=== PATIENT | male | born 1935 | race Caucasian/White ===

== ENCOUNTER 2016-09-27 08:30 | Outpatient (CLI) | payer MEDICARE, BC ==
[~2016-09-27] VITALS: Ht 177.8 cm; Wt 79.0 kg
[~2016-09-27 08:30] MED LIST: ALENDRONATE SOD70 MG PO; ASPIRIN E.C. 8181 MG PO; B/P MED; CALCIUM + D 5001 TAB PO; CALCIUM + D 6001 TAB PO; CALCIUM 500 + D1 TA2 PO; CALTRATE-600 W600 MG PO; CARDI-OMEGA1000 MG PO; DHA PO; DOXYCYCLINE 10100 MG PO; FISH OIL1 IU PO; FLOMAX 0.40.4 MG/CAP PO; FOSAMAX 70MG TA70 MG PO; GLUCOSAMINE & C1 TA1 PO; GLUCOSAMINE PO; HCTZ 25MG TAB25 MG PO; LOPRESSOR 225 MG/TAB PO; MULTIPLE VITAMI1 CAP PO; MULTIPLE VITAMI1 TAB PO; MVI; OMEGA 31000 MG PO; PLAVIX 75MG TAB75 MG PO; PRAVACHOL10 MG PO; PREDNISONE 2.52.5 MG PO; PREDNISONE 5MG5 MG PO; PREDNISONE10 MG PO; PREVACID 30MG30 M1 PO; PREVACID 30MG30 MG PO; PREVACID30 M1 PO; SPIRIVA INH IH; SYMBICORT1 AE1 IH; ULTRAM50 MG PO; VITAMIN D; VITAMIN D1000 IU PO; ZESTRIL 5MG5 MG PO; ZOCOR 40MG40 MG PO; [UNRECOGNIZED DRUG - OTHER] PO; [UNRECOGNIZED DRUG - OTHER] PO
[2016-09-27 09:21] VITALS: BP 134/72; PULSE 83; TEMP 97.3
== END 2016-09-27 12:20 | disposition home or self-care (01) ==
LOC: EUO 08:30 → COL.RAD 08:45 → EUO 12:20
DX: H81.10 Benign paroxysmal vertigo, unspecified ear (principal); E78.5 Hyperlipidemia, unspecified; I34.0 Nonrheumatic mitral (valve) insufficiency; Z87.891 Personal history of nicotine dependence; Z98.890 Other specified postprocedural states

== ENCOUNTER 2017-03-14 11:14 | Emergency (ER) | payer MEDICARE, BC ==
[~2017-03-14] VITALS: Ht 177.8 cm; Wt 83.6 kg
[2017-03-14 11:24] VITALS: TEMP 97.9
[2017-03-14 11:55] LABS: BASO # 0.1 (0.0-0.2); BASO % 0.4 % (0.0-2.0); EOS # 0.1 (0.0-0.7); EOS % 0.7 % (0-4.0); GRAN # 10.6 (1.4-6.5); HEMATOCRIT 40.7 % (42.0-52.0); LYMPH % 15.1 % (20.0-51.0); MEAN CELL VOLUME 90 fl (80.0-100.0); MEAN CORPUSCULAR HEMOGLOBIN 31 pg (27.0-31.0); MEAN CORPUSCULAR HGB CONC 34 g/dl (33.0-37.0); MEAN PLATELET VOLUME 9.4 fl (7.4-10.4); MONO # 0.8 (0.1-0.6); MONO % 5.6 % (1.7-9.3); PLATELET COUNT 221 K/mm3 (130-400); RED BLOOD COUNT 4.53 M/mm3 (4.20-5.60); REDCELL DISTRIBUTION WIDTH-CV 12.6 % (11.5-14.5); WHITE BLOOD COUNT 13.6 K/mm3 (4.8-10.8)
[2017-03-14 12:04] LABS: ADJUSTED CALCIUM 9.1 mg/dL (8.4-10.2); ALANINE AMINOTRANSFERASE 22 U/L (21-72); ALBUMIN 3.8 gm/dL (3.5-5.0); ALKALINE PHOSPHATASE 71 U/L (50-136); ANION GAP 9 mmol/L (7-16); BLOOD UREA NITROGEN 18 mg/dL (9-20); CALCIUM 8.9 mg/dL (8.4-10.2); CARBON DIOXIDE 23 mmol/L (22-30); CHLORIDE 108 mmol/L (98-107); CREATININE, serum 0.94 mg/dL (0.66-1.25); GLUCOSE 89 mg/dL (74-106); LIPASE 86 U/L (23-300); POTASSIUM 4.1 mmol/L (3.4-5.0); SODIUM 140 mmol/L (137-145); TOTAL PROTEIN 6.6 gm/dL (6.4-8.2)
[2017-03-14 12:16] LABS: B-TYPE NATRIURETIC PEPTIDE 374 pg/mL (0-450)
[2017-03-14 12:23] LABS: TROPONIN-I < 0.012 ng/mL (0.000-0.034)
[2017-03-14 13:48] LABS: PROTHROMBIN TIME 11.4 SECONDS (9.7-12.8)
[2017-03-14 14:22] VITALS: BP 133/81; PULSE 81
== END 2017-03-14 14:22 | disposition home or self-care (01) ==
LOC: COL.ER 11:14
PROVIDERS: Emergency Medicine
DX: R53.81 Other malaise (principal); R06.00 Dyspnea, unspecified; R07.9 Chest pain, unspecified; R53.83 Other fatigue; I25.10 Atherosclerotic heart disease of native coronary artery without angina pectoris; I10 Essential (primary) hypertension; E78.5 Hyperlipidemia, unspecified; Z95.5 Presence of coronary angioplasty implant and graft; Z79.02 Long term (current) use of antithrombotics/antiplatelets

== ENCOUNTER → 2018-07-31 | Outpatient (CLI) | payer MEDICARE, BC | LOC: COL.RAD 10:45 | DX: I74.3 Embolism and thrombosis of arteries of the lower extremities (principal); I71.4 Abdominal aortic aneurysm, without rupture; I87.1 Compression of vein; Z95.820 Peripheral vascular angioplasty status with implants and grafts | CPT/HCPCS: Q9967 ==

== ENCOUNTER → 2018-08-14 | Outpatient (CLI) | payer MEDICARE, BC | LOC: COL.RAD 09:47 | DX: I87.1 Compression of vein (principal); I71.4 Abdominal aortic aneurysm, without rupture; R19.00 Intra-abdominal and pelvic swelling, mass and lump, unspecified site; Z95.820 Peripheral vascular angioplasty status with implants and grafts | CPT/HCPCS: Q9967 ==

== ENCOUNTER → 2018-10-06 | Outpatient (CLI) | payer MEDICARE, BC | LOC: COL.RAD 10:29 | DX: R07.1 Chest pain on breathing (principal) ==

== ENCOUNTER → 2020-09-20 | Outpatient (CLI) | payer MEDICARE, BC ==
[2020-09-20 12:45] LABS: C-REACTIVE PROTEIN < 0.5 mg/dL (0.0-0.9)
[2020-09-20 12:53] LABS: TROPONIN-I < 0.012 ng/mL (0.000-0.035)
== END ==
LOC: ZCOL.LAB 12:34
PROVIDERS: Nurse Practitioner
DX: Z01.89 Encounter for other specified special examinations (principal)

== ENCOUNTER → 2020-09-21 | Outpatient (CLI) | payer MEDICARE, BC | LOC: COL.RAD 09-20 14:00 | DX: G31.9 Degenerative disease of nervous system, unspecified (principal); I67.82 Cerebral ischemia; R06.02 Shortness of breath; R51.9 Headache, unspecified ==

== ENCOUNTER → 2020-11-01 | Outpatient (CLI) | payer MEDICARE, BC | LOC: COL.RAD 11:45 | DX: R51.9 Headache, unspecified (principal); Z95.5 Presence of coronary angioplasty implant and graft | CPT/HCPCS: A9585 ==

== ENCOUNTER → 2020-12-14 | Outpatient (CLI) | payer MEDICARE, BC | LOC: COL.RAD 12:29 | DX: M65.88 Other synovitis and tenosynovitis, other site (principal) ==

== ENCOUNTER → 2021-02-01 | Outpatient (CLI) | payer MEDICARE, BC | LOC: ZLAB.ENT 16:26 | DX: H60.02 Abscess of left external ear (principal) ==

== ENCOUNTER → 2021-10-05 | Outpatient (CLI) | payer MEDICARE, BC ==
[~2021-10-05] MED LIST changes: +MOTRIN 600600 MG/TAB PO; +NORCO 325 MG-51 TAB PO
[2021-10-05 14:06] LABS: ALANINE AMINOTRANSFERASE 13 U/L (0-55); ALKALINE PHOSPHATASE 64 U/L (40-150); ANION GAP 9 mmol/L (7-16); AST,SGOT 22 U/L (5-34); BILIRUBIN,TOTAL 1.7 mg/dL (0.2-1.2); BLOOD UREA NITROGEN 14 mg/dL (8-26); C-REACTIVE PROTEIN 0.12 mg/dL (0.00-0.50); CALCIUM 8.8 mg/dL (8.4-10.2); CARBON DIOXIDE 24 mmol/L (23-31); CHLORIDE 108 mmol/L (98-107); GLUCOSE 117 mg/dL (70-99); POTASSIUM 3.9 mmol/L (3.5-4.5); SODIUM 141 mmol/L (136-145); TOTAL PROTEIN 6.4 gm/dL (6.2-8.1); TROPONIN-I < 0.010 ng/mL (0.00-0.033)
== END ==
LOC: ZCOL.LAB 13:41
PROVIDERS: Internal Medicine Interventional Cardiology
DX: I25.10 Atherosclerotic heart disease of native coronary artery without angina pectoris (principal); R42 Dizziness and giddiness

== ENCOUNTER → 2022-05-11 | Outpatient (CLI) | payer MEDICARE, BC | LOC: COL.RAD 10:39 | DX: M51.36 Other intervertebral disc degeneration, lumbar region (principal); M51.37 Other intervertebral disc degeneration, lumbosacral region; M24.852 Other specific joint derangements of left hip, not elsewhere classified ==

== ENCOUNTER 2023-07-29 11:45 | Emergency (ER) | payer MEDICARE, BC ==
[~2023-07-29] VITALS: Ht 180.3 cm; Wt 74.5 kg
[2023-07-29 11:54] VITALS: TEMP 97.6
[2023-07-29] MEDS ORDERED: LR 1,000 ML IV ONE (12:45)
[2023-07-29 13:09] LABS: BASO % 0.2 % (0.0-2.0); EOS # 0.1 K/mm3 (0.0-0.7); EOS % 1.3 % (0.0-4.0); GRAN # 5.6 K/mm3 (1.4-6.5); GRAN % 64.1 % (42.2-75.2); HEMATOCRIT 39.1 % (42.0-52.0); HEMOGLOBIN 13.6 g/dl (13.5-18.0); LYMPH # 2.2 K/mm3 (1.2-3.4); LYMPH % 25.3 % (20.0-51.0); MEAN CELL VOLUME 88 fl (80.0-100.0); MEAN CORPUSCULAR HEMOGLOBIN 31 pg (27-31); MEAN CORPUSCULAR HGB CONC 35 g/dl (33.0-37.0); MEAN PLATELET VOLUME 9.3 fl (7.4-10.4); MONO # 0.8 K/mm3 (0.1-0.6); MONO % 8.8 % (1.7-9.3); PLATELET COUNT 170 K/mm3 (130-400); RED BLOOD COUNT 4.46 M/mm3 (4.20-5.60); REDCELL DISTRIBUTION WIDTH-CV 12.4 % (11.5-14.5)
[2023-07-29 13:45] LABS: ALANINE AMINOTRANSFERASE 16 U/L (0-55); ALBUMIN 3.6 gm/dL (3.4-4.8); ALKALINE PHOSPHATASE 66 U/L (40-150); ANION GAP 9 mmol/L (7-16); AST,SGOT 21 U/L (5-34); BLOOD UREA NITROGEN 20 mg/dL (8-26); CALCIUM 9.3 mg/dL (8.4-10.2); CARBON DIOXIDE 25 mmol/L (23-31); CHLORIDE 110 mmol/L (98-107); CREATININE, serum 1.19 mg/dL (0.72-1.25); GLUCOSE 98 mg/dL (70-99); PHOSPHOROUS 3.4 mg/dL (2.3-4.7); POTASSIUM 3.9 mmol/L (3.5-4.5); SODIUM 144 mmol/L (136-145); TOTAL PROTEIN 6.1 gm/dL (6.2-8.1)
[2023-07-29 13:51] LABS: TROPONIN-I < 0.010 ng/mL (0.00-0.033)
[2023-07-29 15:01] VITALS: BP 164/79; PULSE 71
== END 2023-07-29 15:15 | disposition home or self-care (01) ==
LOC: COL.ER 11:45
PROVIDERS: Emergency Medicine
DX: R42 Dizziness and giddiness (principal)
CPT/HCPCS: J7120

== ENCOUNTER 2024-02-15 14:46 | Inpatient (IN) | payer MEDICARE, BC ==
[~2024-02-15] VITALS: Ht 180.3 cm; Wt 70.6 kg
[2024-02-15 15:14] LABS: BASO % 0.1 % (0.0-2.0); GRAN # 12.9 K/mm3 (1.4-6.5); GRAN % 87.2 % (42.2-75.2); HEMOGLOBIN 12.3 g/dl (13.5-18.0); LYMPH # 1.1 K/mm3 (1.2-3.4); LYMPH % 7.7 % (20.0-51.0); MEAN CELL VOLUME 88 fl (80.0-100.0); MEAN CORPUSCULAR HEMOGLOBIN 30 pg (27-31); MEAN CORPUSCULAR HGB CONC 34 g/dl (33.0-37.0); MEAN PLATELET VOLUME 9.8 fl (7.4-10.4); MONO # 0.7 K/mm3 (0.1-0.6); MONO % 4.7 % (1.7-9.3); PLATELET COUNT 178 K/mm3 (130-400); RED BLOOD COUNT 4.11 M/mm3 (4.20-5.60); REDCELL DISTRIBUTION WIDTH-CV 12.5 % (11.5-14.5)
[2024-02-15 15:15] LABS: HEMATOCRIT 36.1 % (42.0-52.0)
[2024-02-15 15:20] LABS: INR 1.1 (0.8-3.0); PROTHROMBIN TIME 12.5 SECONDS (9.7-12.8)
[2024-02-15 15:23] LABS: PARTIAL THROMBOPLASTIN TIME 28.2 SECONDS (26.0-37.0)
[2024-02-15 15:32] LABS: ALANINE AMINOTRANSFERASE 12 U/L (0-55); ALKALINE PHOSPHATASE 68 U/L (40-150); ANION GAP 16 mmol/L (7-16); AST,SGOT 23 U/L (5-34); BILIRUBIN,TOTAL 1.7 mg/dL (0.2-1.2); BLOOD UREA NITROGEN 47 mg/dL (8-26); C-REACTIVE PROTEIN 3.72 mg/dL (0.00-0.50); CALCIUM 9.3 mg/dL (8.4-10.2); CHLORIDE 109 mEq/L (98-107); CREATININE, serum 3.65 mg/dL (0.72-1.25); GLUCOSE 187 mg/dL (70-99); LIPASE 8 U/L (8-78); MAGNESIUM 1.9 mg/dL (1.6-2.6); POTASSIUM 4.4 mEq/L (3.5-4.5); SODIUM 142 mEq/L (136-145); TOTAL PROTEIN 6.9 g/dl (6.2-8.1)
[2024-02-15 15:37] LABS: TROPONIN-I 0.011 ng/mL (0.00-0.033)
[2024-02-15 15:41] LABS: ALCOHOL(ethanol),MEDICAL < 10 mg/dL (0-10)
[2024-02-15 16:30] LABS: COLLECTION METHOD CLEAN CATCH
[2024-02-15 16:52] LABS: TRICYCLIC ANTIDEPRESS URINE NEGATIVE (NEGATIVE); URINE APPEARANCE TURBID (CLEAR/HAZY); URINE BLOOD TRACE (NEGATIVE); URINE COLOR RED (YELLOW); URINE GLUCOSE NEGATIVE (NEGATIVE); URINE KETONE TRACE (NEGATIVE); URINE NITRATE POSITIVE (NEGATIVE); URINE PROTEIN(semi-quant) TRACE (NEGATIVE); URINE UROBILINOGEN 0.2 E.U/dL (0.2-1.0)
[2024-02-15 17:12] LABS: SQUAMOUS EPITHELIAL 0-2 /hpf (0-10); URINE RBC >50 /hpf (0-2)
[2024-02-15] MEDS ORDERED: NS 1,000 ML IV ONE (18:45)
[2024-02-15] MEDS ORDERED: Morphine 4 MG/ML VIAL IV ONE (18:45)
[2024-02-15] MEDS ORDERED: cefTRIAXone 1 G in Water For Injection,Sterile 10 ML IV ONE (18:45)
[2024-02-15] MEDS ORDERED: NS 1,000 ML IV SCH (19:30)
[2024-02-15] MEDS ORDERED: Acetaminophen 325 MG TAB PO PRN (19:30)
[2024-02-15] MEDS ORDERED: DAZIDOX10 MG PO (19:35)
[2024-02-15] MEDS ORDERED: NORVASC2.5 MG PO (19:35)
[2024-02-15] MEDS ORDERED: NAMENDA 10MG TA10 MG PO (19:35)
[2024-02-15] MEDS ORDERED: EFFEXOR 75M75 MG/TAB PO (19:35)
[2024-02-15] MEDS ORDERED: CRESTOR 10MG10 MG PO (19:35)
[2024-02-15] MEDS ORDERED: PRINIVIL20 MG PO (19:35)
[2024-02-15] MEDS ORDERED: ARICEPT10 MG PO (19:35)
[2024-02-15] MEDS ORDERED: SEROQUEL 2525 MG/TAB PO (19:36)
[2024-02-15 19:42] VITALS: BP 144/103; PULSE 115
[2024-02-15] MEDS ORDERED: ASPIRIN 81M81 MG/TA2 PO (20:04)
[2024-02-15 20:59] VITALS: BP_SYST 122
[2024-02-15] MEDS ORDERED: Atorvastatin 20 MG TAB PO SCH (21:00)
[2024-02-15] MEDS ORDERED: Memantine 10 MG TAB PO SCH (21:00)
[2024-02-15] MEDS ORDERED: Rosuvastatin 10 MG **** subs to Atorvastatin 20 MG PO SCH (21:00)
[2024-02-15] MEDS ORDERED: Donepezil 5 MG TAB PO SCH (21:00)
[2024-02-15] MEDS ORDERED: Metoprolol Tartrate 25 MG TAB PO SCH (21:00)
[2024-02-15] MEDS ORDERED: QUEtiapine 25 MG TAB PO SCH (21:00)
[2024-02-15 21:03] VITALS: BP 122/71; PULSE 119; TEMP 98.3
[2024-02-15 21:21] VITALS: BP_SYST 122; PULSE 103
--- NOTE | 2024-02-15 21:30 | NUR ---
Report received from ER at approximately 2039. Arrived to medical unit at approximately 2049. Patient is alert and oriented to self. Has increased confusion from baseline according to nephew Jacob who came up with patient. Asked if he could stay a while, and this nurse told him due to confusion he could stay however long he would like, even stay the night if he wanted to. Patient reports pain to BLE, chronic. Given PRN Acetaminophen per orders. Peripheral INT to left forearm. Started IV fluids per orders. Denies having SOB and dyspnea. LS CTA. HRR. On telemetry per orders. BSAx4. No edema. Reports tenderness to right flank area. Reports bloody urine, unable to observe at this time. Patient given scheduled medications. Unable to do med rec, as patient is not aware of medications. Nephew is not sure, and stated that Allegraklaus puts his medications in packages to help patient. OLY Corey completed med rec with family in ER. High fall risk precautions initiated. Voices no questions, needs, or concerns at this time. In bed with call light within reach. Bed alarm on.
[2024-02-15 23:13] VITALS: BP 125/67; PULSE 91; TEMP 98.1
[2024-02-16] VITALS (15 sets, daily range): BP systolic 118–158; BP diastolic 60–78; PULSE 72–99; TEMP 97–98.5
--- NOTE | 2024-02-16 03:10 | NUR ---
Troponin called to OLY Corey.
--- NOTE | 2024-02-16 06:11 | NUR ---
Patient has voiced no further complaints of pain or discomfort this shift. Continues on IV fluids per orders. Patient has had hematuria this shift. Voices no questions, needs, or concerns at this time. In bed with call light within reach. High fall risk precautions in place. Bed alarm on.
--- NOTE | 2024-02-16 06:22 | NUR ---
Consult called to Dr. Diamond at this time.
[2024-02-16] MEDS ORDERED: Pantoprazole 40 MG in NS 10 ML IV SCH (07:00)
[2024-02-16 07:07] LABS: BASO % 0.2 % (0.0-2.0); EOS # 0.1 K/mm3 (0.0-0.7); EOS % 0.7 % (0.0-4.0); GRAN # 6.4 K/mm3 (1.4-6.5); LYMPH # 1.6 K/mm3 (1.2-3.4); LYMPH % 18.3 % (20.0-51.0); MEAN CELL VOLUME 89 fl (80.0-100.0); MEAN CORPUSCULAR HGB CONC 34 g/dl (33.0-37.0); MEAN PLATELET VOLUME 10.6 fl (7.4-10.4); MONO # 0.5 K/mm3 (0.1-0.6); MONO % 6.3 % (1.7-9.3); PLATELET COUNT 137 K/mm3 (130-400); RED BLOOD COUNT 3.19 M/mm3 (4.20-5.60); REDCELL DISTRIBUTION WIDTH-CV 12.5 % (11.5-14.5)
[2024-02-16 07:11] LABS: HEMATOCRIT 28.3 % (42.0-52.0); HEMOGLOBIN 9.7 g/dl (13.5-18.0); MEAN CORPUSCULAR HEMOGLOBIN 30 pg (27-31)
[2024-02-16 07:27] LABS: CALCIUM 8.4 mg/dL (8.4-10.2); CREATININE, serum 3.43 mg/dL (0.72-1.25)
--- NOTE | 2024-02-16 08:30 | NUR ---
PATIENT RESTING IN BED UPON ENTERING ROOM. MORNING MEDICATIONS ADMINISTERED PER eMAR. PATIENT IS ORIENTED X1-2. AT BEDSIDE, UPDATED AND PATIENT ON PLAN OF CARE. IVF INFUSING. PATIENT DENIES ANY PAIN OR NEEDS THIS MORNING. CALL LIGHT PLACED WITHIN REACH, BED ALARM IN PLACE. REMAINS NPO FOR DOCTOR TO SEE. WILL CONTINUE TO MONITOR.
--- NOTE | 2024-02-16 11:50 | NUR ---
SW met with patient, his (Kalie [phone]) she was present and permitted to remain and assist with intake. Patient was resting, and patient's primary supported SW will intake info. Patient's confirmed that his PCP is Dr. Christensen and pharmacy of choice is [facility]. She informed SW that patient lives home alone, she resides two houses down from her spouse. Patient's reports that his health has been declining, and that he has dementia. 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 Kalie (patients ) shared that she has been considering having a family member come in periodically to support patient, as she believes patient will be unwilling to have home health care in his home. Patient currently uses a walker and cane, not additional DMEs at this time reported. Patient is not full independent with ADLs per , as he needs some assistance. Kalie (patients ) reports that they do have DPOA on file with estate administrator and PCP. Discharge plan: TBD
[2024-02-16 12:13] LABS: BASO % 0.3 % (0.0-2.0); EOS % 0.4 % (0.0-4.0); GRAN # 7.6 K/mm3 (1.4-6.5); HEMOGLOBIN 10.1 g/dl (13.5-18.0); LYMPH # 1.1 K/mm3 (1.2-3.4); LYMPH % 11.5 % (20.0-51.0); MEAN CELL VOLUME 90 fl (80.0-100.0); MEAN CORPUSCULAR HEMOGLOBIN 30 pg (27-31); MEAN CORPUSCULAR HGB CONC 34 g/dl (33.0-37.0); MEAN PLATELET VOLUME 9.8 fl (7.4-10.4); MONO # 0.6 K/mm3 (0.1-0.6); MONO % 6.2 % (1.7-9.3); PLATELET COUNT 135 K/mm3 (130-400); RED BLOOD COUNT 3.35 M/mm3 (4.20-5.60); REDCELL DISTRIBUTION WIDTH-CV 12.5 % (11.5-14.5)
[2024-02-16] MEDS ORDERED: NS 10 ML IV ONE ×2 (15:40→16:17)
[2024-02-16] MEDS ORDERED: fentaNYL 50 MCG/ML 2 ML VIAL ONE (15:40)
[2024-02-16] MEDS ORDERED: Etomidate 20 MG/10 ML VIAL IV ONE (15:40)
[2024-02-16] MEDS ORDERED: Ondansetron 4 MG/2 ML VIAL ONE (15:40)
[2024-02-16] MEDS ORDERED: dexAMETHasone 10 MG/ML VIAL ONE (15:40)
[2024-02-16] MEDS ORDERED: HYDROmorphone 1 MG/1 ML SYRINGE [PACU/SDC ONLY] IV PRN (15:45)
[2024-02-16] MEDS ORDERED: Ondansetron 4 MG/2 ML VIAL IV PRN (15:45)
[2024-02-16] MEDS ORDERED: fentaNYL 50 MCG/ML 1 ML SYRINGE/VIAL [PACU/SDC ONLY] IV PRN ×2 (15:45)
[2024-02-16] MEDS ORDERED: hydrALAZINE 20 MG/ML 1 ML VIAL IV PRN (15:45)
[2024-02-16] MEDS ORDERED: LR 1,000 ML IV SCH (15:45)
[2024-02-16] MEDS ORDERED: Iohexol 300 - 10 ML VIAL URETER-B ONE (16:18)
[2024-02-16] MEDS ORDERED: Lidocaine 2% (20 MG/ML) 20 ML UROJET UR ONE (16:18)
[2024-02-16] MEDS ORDERED: Hyoscyamine 0.125 MG Sublingual TAB SL PRN (17:15)
--- NOTE | 2024-02-16 17:20 | NUR ---
PATIENT RETURNED TO UNIT AT THIS TIME. PATIENT DID SPIT LEVSIN PILL OUT ACROSS THE ROOM. HOOKED UP TO POST OP VITALS. RESUMED IVF. PATIENT COMPLAINING OF OLIVA WHILE HE WAS AWAKE, BUT QUICKLY FELL ASLEEP. OLIVA IS DRAINING RED URINE. FAMILY BACK AT BEDSIDE. BED ALARM IN PLACE, CALL LIGHT WITHIN REACH. HOOKED BACK UP TO TELEMETRY. WILL CONTINUE TO MONITOR.
[2024-02-16] MEDS ORDERED: cefTRIAXone 1 G in Water For Injection,Sterile 10 ML IV SCH (18:00)
--- NOTE | 2024-02-16 18:26 | NUR ---
PATIENT IS BECOMING INCREASINGLY AGGITATED HE WAKES FROM SEDATION. REFUSES TO WEAR THE PULSE OXIMETER AND TRYING TO GET OUT OF BED. FAMILY AT BEDSIDE TRYING TO CALM HIM DOWN. ZOEY SAMS NOTIFIED AND INSTRUCTED TO GIVE 2100 SEROQUEL EARLY.
[2024-02-16] MEDS ORDERED: LORazepam 2 MG/ML 1 ML VIAL IV ONE ×2 (18:45→19:15)
--- NOTE | 2024-02-16 19:20 | NUR ---
During bedside report patient is pulling on tran and very combative. Nurse Lilliam and CHAR Kemp at bedside. RICHAR Corey also at bedside with verbal order for ativan 0.25mg IV now and apply mitts. Order placed for ativan-given by thisnurse. CHAR Kemp remains at bedside and has calmed patient. Patient is suppose to be on post op vitals and have TELE on. All removed due to agitation. RICHAR Corey aware. All external stimulation has been reduced. Family remains at bedside. Will monitor.
--- NOTE | 2024-02-16 20:00 | NUR ---
Lab here to draw scheduled CBC. Patient is finally calm/resting with eyes closed. Spoke with RICHAR Corey and aracelis to hold off on scheduled CBC for now. Patient continues to rest comfortable with family at bedside. Ramon cath with dark red output. Small amount of blood around insertion site due to previous pulling on line. NS@75ml/hr to left forearm IV infusing without difficulty. Post op vitals held. TELE is currently off. Instructed PCT to hold off on cares for now due to patient being previously combative and receiving a doses of ativan. Will monitor.
--- NOTE | 2024-02-16 20:45 | NUR ---
Post op vitals on hold-patient has been very combative and uncooperative-Leora BUS DRIVER SUPERVISOR aware and is okay to hold off on cares for now. Family remains at bedside.
--- NOTE | 2024-02-16 20:49 | NUR ---
Family to desk and is going home for this shift. Worried patient is going to try to get out of bed when they do leave. Instructed bed alarm is on lightest setting-does have orders for mittens if needed-at this time not placed due to fear of making more agitated. Will place if patient becomes more alert. Currently is resting eyes closed post ativan x2. Will monitor
--- NOTE | 2024-02-16 21:08 | NUR ---
Patient continues to be restless waking up agitated. Family remains at bedside. Has refused to take HS meds. Did take HS seroquel but thinks staff is trying to poison him. Currently unable to get VS. Ramon cath with bloody output noted. Left forearm IV with NS@75ml/hr infusing without difficulty. Family instructed to notify staff when leaving so we can decrease bed alarm sensitivity. Verbalizes understanding. Call light in reach. Will monitor.
--- NOTE | 2024-02-16 22:22 | NUR ---
Patient continues to be combative off and on. Family remains at bedside which helps. Currently not utilizing mitts as it seems to agitate patient more. Holding off on PM cares/VS-RICHAR Corey aware. TELE is off as paitent will not leave on. Ramon cath with yellow to reddish output. Will continue to monitor.
--- NOTE | 2024-02-16 23:26 | NUR ---
Patient resting eyes closed. Family is heading home. VS taken and stable. TELE remains off to to increased agitation/combativeness. RICHAR Corey aware. Raomn cath with yellow/dark red streaked output. No s/s of distress noted. Will monitor.
[2024-02-17] VITALS (12 sets, daily range): BP systolic 122–176; BP diastolic 63–86; PULSE 50–96; TEMP 97.5–98.7
--- NOTE | 2024-02-17 01:33 | NUR ---
RICHAR Corey notified this nurse to go ahead and try to get CBC drawn. Okay to get all AM labs at this time. Nnotified lab who will be up to draw soon.
--- NOTE | 2024-02-17 01:54 | NUR ---
AM labs drawn by this nurse at this time. Patient slept through procedure.
[2024-02-17 02:04] LABS: BASO % 0.1 % (0.0-2.0); GRAN # 8.5 K/mm3 (1.4-6.5); GRAN % 86.7 % (42.2-75.2); HEMOGLOBIN 10.6 g/dl (13.5-18.0); LYMPH # 0.8 K/mm3 (1.2-3.4); LYMPH % 8.3 % (20.0-51.0); MEAN CELL VOLUME 88 fl (80.0-100.0); MEAN CORPUSCULAR HEMOGLOBIN 30 pg (27-31); MEAN CORPUSCULAR HGB CONC 34 g/dl (33.0-37.0); MEAN PLATELET VOLUME 9.9 fl (7.4-10.4); MONO # 0.4 K/mm3 (0.1-0.6); MONO % 4.4 % (1.7-9.3); PLATELET COUNT 144 K/mm3 (130-400); RED BLOOD COUNT 3.51 M/mm3 (4.20-5.60); REDCELL DISTRIBUTION WIDTH-CV 12.4 % (11.5-14.5)
[2024-02-17 02:13] LABS: CALCIUM 8.5 mg/dL (8.4-10.2); CREATININE, serum 3.67 mg/dL (0.72-1.25); POTASSIUM 4.5 mEq/L (3.5-4.5)
--- NOTE | 2024-02-17 02:13 | NUR ---
Patient has been resting well since seroquel earlier. This nurse was able to reapply TELE during sleep. Will monitor.
--- NOTE | 2024-02-17 02:25 | NUR ---
RICHAR Corey notified of critical CO2 of 12.
--- NOTE | 2024-02-17 05:39 | NUR ---
Patient has slept most of shift since receiving two doses of ativan and scheduled seroquel. Ramon cath continues to have reddish output. INT to left forearm with NS@75ml/hr infusing without difficulty. NPO for echo/jamal scan. VS stable. On RA. No s/s of distress noted. Will monitor.
--- NOTE | 2024-02-17 06:50 | NUR ---
Bedside report given to MARVIN Peoples.
--- NOTE | 2024-02-17 07:00 | NUR ---
Pt sleeping soundly during bedside report. Even non labored breathing. Bed alarm on and call light within reach
[2024-02-17] MEDS ORDERED: NS 1,000 ML IV SCH ×2 (08:45→13:45)
[2024-02-17] MEDS ORDERED: amLODIPine 5 MG TAB PO SCH (09:00)
--- NOTE | 2024-02-17 09:20 | NUR ---
Pt has had echo done, slept through most of it. IVF increased to 200ml/hr
[2024-02-17] MEDS ORDERED: Sodium Bicarbonate 650 MG TAB PO SCH (09:30)
[2024-02-17] MEDS ORDERED: Sodium Bicarbonate/Water,Steri 1,150 ML IV SCH (10:00)
--- NOTE | 2024-02-17 10:35 | NUR ---
Discussed pt jamal with MARVIN Mayorga from radiology. Reviewed medications that were schedule, stated okay to give all schduled medications
--- NOTE | 2024-02-17 10:54 | NUR ---
, [facility], WAS CALLED FOR LEXISCAN CONSENT BY THIS JEWEL BEARING FACER. TEST EXPLAINED AND ALL QUESTIONS ANSWERED. CONSENTED OVER THE PHONE TO THIS TEST. MARVIN PETERSON AND THIS JEWEL BEARING FACER WITNESSED THE TELEPHONE CONSENT AND SIGNED CONSENT FORM. SUPPLIED THE HEALTH HISTORY OF THE PATIENT. PATIENT IS CURRENTLY NOT ABLE TO SIGN FOR HIMSELF OR SUPPLY HEALTH HISTORY AND WAS DROWSY WHEN THIS JEWEL BEARING FACER VISTED AT THE BEDSIDE. NEPHEW IS AT THE BEDSIDE AND THE PATIENT'S GAVE VERBAL CONSENT OVER THE PHONE TO DISCUSS THE PATIENT'S CARE WITH THE NEPHEW AT THE BEDSIDE.
--- NOTE | 2024-02-17 11:02 | NUR ---
Pt more awake at this time. He was able to get up and ambulate with a walker x1 assist with therapy. Pt reported that his right knee was hurting, but that it was normal for him. His nephew has been here some of the morning. Radiology did speak with Paulina, his , regarding jamal scan. Pt back in bed at this time, bed alarm on, nephew at bedside
--- NOTE | 2024-02-17 12:06 | NUR ---
Pts arrived as well as another nephew. stated that they have discussed end of life care for many years and that Harish would not want all the things done that are being ordered. She would like to stop treatment. I called Diamante PRATER and notified her of this
--- NOTE | 2024-02-17 12:09 | NUR ---
Notified [facility] of cancellation of the stress test
[2024-02-17] MEDS ORDERED: LORazepam 2 MG/ML 1 ML VIAL IV PRN (12:45)
[2024-02-17] MEDS ORDERED: Morphine Oral Concentrate 20 MG/ML UD SL PRN (12:45)
[2024-02-17] MEDS ORDERED: Morphine 4 MG/ML VIAL IV PRN (13:00)
[2024-02-17] MEDS ORDERED: Ondansetron 4 MG/2 ML VIAL IV PRN (13:00)
--- NOTE | 2024-02-17 15:18 | NUR ---
Crook Operator received consult for patient to discuss hospice options with patient's family. SW met with Paulina, nephew Jacob, and nephew August and provided Medicare.gov list of Hospice agencies and SNF options. SW reviewed options including hosice at home, hospice at a fpc, or the [facility]. Family stated hospice at home would not be an option. They requested a referral be sent to [facility] as this is their first preference. They would prefer not to go to a fpc, but their second preference is [facility]. ML contacted Blanca at [facility] and sent referral for review. Discharge Plan: [facility], referral pending
--- NOTE | 2024-02-17 16:14 | NUR ---
REPORT RECEIVED ET CARE ASSUMED BY THIS NURSE AT 1500. PT RESTING IN BED, AWAKE, CONFUSED, PLEASANT, COOPERATIVE. FAMILY REMAINS AT BEDSIDE. TELE STOPPED AT THIS TIME. PT DENIES NEED FOR PAIN MEDICATION AT THIS TIME. OLIVA DRAINING DARK VIJAY TO RED. PT REORIENTED TO NEED FOR OLIVA. NO FURTHER NEEDS AT THIS TIME. BED ALARM ON.
--- NOTE | 2024-02-17 20:30 | NUR ---
UPON SHIFT ASSESSMENT, DARIO WAS AWAKE IN BED WITH FAMILY VISITING. HE IS AXO X1 AND SLIGHTLY CONFUSED, BUT PLEASANTLY SO. VS ARE WNL AND LUNG SOUNDS CLEAR. DARIO CURRENTLY DENIES PAIN. OLIVA CONTINUES TO DRAIN GROSS HEMATURIA. COMFORT CARE ORDERS IN PLACE. CALL LIGHT WITHIN REACH BED ALARM ON.
[2024-02-18 01:05] VITALS: BP_SYST 122
[2024-02-18 04:30] VITALS: BP_SYST 122
--- NOTE | 2024-02-18 06:14 | NUR ---
PATIENT HAD AN UNEVENTFUL NIGHT AND REMAINS PLEASANTLY CONFUSED. HE AMBULATED TO RESTROOM SEVERAL TIMES. OLIVA CONTINUES TO DRAIN HEMATURIA. PATIENT DENIES PAIN. VS ARE STABLE.
[2024-02-18] MEDS ORDERED: ATIVAN 1MG T1 MG/TAB PO (08:26)
[2024-02-18] MEDS ORDERED: ROXANOL 20MG20 MG/ML SL (08:26)
[2024-02-18] MEDS ORDERED: TRANSDERM-0.5 MG/21 TD (08:26)
[2024-02-18] MEDS ORDERED: DULCOLAX S10 MG/SUPP RC (08:26)
[2024-02-18] MEDS ORDERED: SYSTANE 0.4%-0.1 SOL OU (08:26)
--- NOTE | 2024-02-18 08:30 | NUR ---
PATIENT ALERT AND ORIENTED TO SELF. DENIES PAIN AT THIS TIME. ON ROOM AIR. OLIVA INPLACE DRAINING BLOODY URINE AND SEDIMENT.PATIENT VERBALIZED HAVING A GOOD NIGHT AND WAS ASSISTED TO SIT UP TO EAT BREAKFAST.SHIFT ASSESSMENT COMPLETED. CALL LIGHT WITHIN REACH. BED ALARM ON.
[2024-02-18] MEDS ORDERED: NS 1,000 ML IV SCH (09:00)
[2024-02-18 09:02] VITALS: BP_SYST 122
--- NOTE | 2024-02-18 09:55 | NUR ---
PATIENT DENIED NEEDING ANYTHING FOR PAIN BEFORE BEING TRANSPORTED TO [facility]. PATIENT IV WAS REMOVED. PATIENT TRASPORTED VIA EMS. INFO PACKET GIVEN TO TRANSPORTERS.
--- NOTE | 2024-02-18 10:14 | NUR ---
PATIENTREPORT CALLED TO [facility] NURSE WHO IS RECEIVING PATIENT.
--- NOTE | 2024-02-18 10:51 | NUR ---
Blanca at [facility] advised they can accept patient today and Dr. Box, their medical aide has agreed to follow. ML contacted [facility] and scheduled transport time for 1000. ML contacted patient's , Paulina and she is agreeable with the discharge plan and going via EMS. ML sent discharge orders to Blanca at [facility] via secure email. Discharge Plan; [facility]
== END 2024-02-18 10:15 | disposition hospice, inpatient (51) | DRG 853 ==
LOC: COL.ER 14:46 → MEDICAL 19:54
PROVIDERS: Emergency Medicine; Nurse Practitioner Family; Urology; ADMIT Internal Medicine
PROC: 0T788DZ Dilation of Bilateral Ureters with Intraluminal Device, Via Natural or Artificial Opening Endoscopic (ICD-10-PCS; principal; 2024-02-16 16:30)
PROC: BT141ZZ Fluoroscopy of Kidneys, Ureters and Bladder using Low Osmolar Contrast (ICD-10-PCS; 2024-02-16 16:30)
DX: A41.9 Sepsis, unspecified organism (principal); I21.A1 Myocardial infarction type 2; K68.2 Retroperitoneal fibrosis; D62 Acute posthemorrhagic anemia; N13.6 Pyonephrosis; N17.9 Acute kidney failure, unspecified; E87.20 Acidosis, unspecified; Z66 Do not resuscitate; Z51.5 Encounter for palliative care; G20.A1 Parkinson's disease without dyskinesia, without mention of fluctuations; I25.10 Atherosclerotic heart disease of native coronary artery without angina pectoris; G89.29 Other chronic pain; E78.5 Hyperlipidemia, unspecified; R31.0 Gross hematuria; I71.43 Infrarenal abdominal aortic aneurysm, without rupture; E86.0 Dehydration; F02.80 Dementia in other diseases classified elsewhere, unspecified severity, without behavioral disturbance, psychotic disturbance, mood disturbance, and anxiety; R73.9 Hyperglycemia, unspecified; Z85.46 Personal history of malignant neoplasm of prostate; Z95.5 Presence of coronary angioplasty implant and graft; Z98.52 Vasectomy status; Z87.891 Personal history of nicotine dependence; Z79.82 Long term (current) use of aspirin; Z79.899 Other long term (current) drug therapy; Z91.148 Patient's other noncompliance with medication regimen for other reason; Z23 Encounter for immunization
CPT/HCPCS: C1769; C2617; J0690; J0696; J1100; J2060; J2270; J2405; J2470; J3010; J7030; Q9967